=== PATIENT | female | born 1930 | race Caucasian/White ===

== ENCOUNTER 2017-08-14 08:05 | Inpatient (IN) ==
[2017-08-14 08:49] LABS: Basophils % 0.3 % (0.0-0.8); Eosinophils # 0.1 10*3/uL (0.0-0.87); Eosinophils % 0.9 % (0.00-10.9); Hematocrit 34.3 VOL% (35.7-47.0); Hemoglobin 11.9 GM/DL (12.0-16.0); Immature Granulocytes % 0.5 %; Immature Granulocytes Absolute 0.08 #; Lymphocytes # 1.2 10*3/uL (1.4-4.0); Lymphocytes % 7.7 % (21.3-54.2); Mean Corpuscular HGB Conc 34.7 GM/DL (32-36); Mean Corpuscular Hemoglobin 31 PG (27-34); Mean Corpuscular Volume 89.1 FL (87-102); Mean Platelet Volume 10.8 FL (9.6-12.0); Monocytes # 1.6 10*3/uL (0.11-0.8); Monocytes % 10.5 % (1.7-12.7); Neutrophils # 12.3 10*3/uL (1.4-7.4); Neutrophils % 80.1 % (38.7-73.9); Platelet Count 239 T/CUMM (130-400); Red Blood Count 3.85 MC/CUMM (3.8-5.5); Red Cell Distribution Width 14.1 % (9.3-17.3); White Blood Count 15.4 T/CUMM (4-12)
[2017-08-14] MEDS: SODIUM CHLORIDE 0.9% 1,000 ML IV SCH ×2 (08:58→21:11)
[2017-08-14 08:59] LABS: PT Patient Result 10.7 SECS; Partial Thromboplastin Time 24.3 SECS (0-40)
[2017-08-14 09:19] LABS: Bilirubin,Total 1.4 MG/DL (0.2-1.0); Calcium 8.9 MG/DL (8.5-10.1); Osmolality,Calculated 274.2 MOS/KG (273-304); Potassium 3.9 MMOL/L (3.5-5.1); Total Protein 6.7 G/DL (6.4-8.3)
[2017-08-14] MEDS ORDERED: BISACODYL 5 MG TABLET PO PRN (09:45)
[2017-08-14] MEDS ORDERED: ONDANSETRON 4 MG/2 ML VIAL IV PRN (09:45)
[2017-08-14] MEDS ORDERED: ACETAMINOPHEN 325 MG TABLET PO PRN (09:45)
[2017-08-14] MEDS ORDERED: ALUMINUM/MAGNES/SIMETH MAX STR 30 ML UDCUP PO PRN (09:45)
[2017-08-14] MEDS ORDERED: MAGNESIUM CITRATE 300 ML BOTTLE PO ONE (09:57)
[2017-08-14] MEDS ORDERED: POLYETHYLENE GLYCOL POWDER 17 GM PACK PO PRN (09:58)
[2017-08-14] MEDS ORDERED: MAGNESIUM CITRATE 300 ML BOTTLE ONE (10:29)
[2017-08-14] MEDS: DIGOXIN 0.125 MG TABLET PO SCH (21:05)
[2017-08-14] MEDS: DOCUSATE SODIUM 100 MG CAPSULE PO SCH (21:05)
[2017-08-14] MEDS: MULTIVITAMIN (CENTRUM) TABLET PO SCH (21:06)
[2017-08-14] MEDS: METOPROLOL SUCCINATE XL 50 MG TABLET PO SCH (21:06)
[2017-08-14] MEDS: MINERAL OIL 30 ML UDCUP PO SCH (21:07)
[2017-08-14] MEDS: ROSUVASTATIN 10 MG TABLET PO SCH (21:11)
[2017-08-15 05:18] LABS: Basophils % 0.3 % (0.0-0.8); Eosinophils # 0.2 10*3/uL (0.0-0.87); Eosinophils % 1.6 % (0.00-10.9); Hematocrit 30.3 VOL% (35.7-47.0); Hemoglobin 10.2 GM/DL (12.0-16.0); Immature Granulocytes % 0.6 %; Immature Granulocytes Absolute 0.07 #; Lymphocytes # 1.4 10*3/uL (1.4-4.0); Lymphocytes % 11.7 % (21.3-54.2); Mean Corpuscular HGB Conc 33.7 GM/DL (32-36); Mean Corpuscular Hemoglobin 30 PG (27-34); Mean Corpuscular Volume 89.9 FL (87-102); Mean Platelet Volume 10.8 FL (9.6-12.0); Monocytes # 1.3 10*3/uL (0.11-0.8); Monocytes % 11.4 % (1.7-12.7); Neutrophils # 8.8 10*3/uL (1.4-7.4); Neutrophils % 74.4 % (38.7-73.9); Platelet Count 186 T/CUMM (130-400); Red Blood Count 3.37 MC/CUMM (3.8-5.5); Red Cell Distribution Width 14.3 % (9.3-17.3); White Blood Count 11.8 T/CUMM (4-12)
[2017-08-15 05:37] LABS: Osmolality,Calculated 280.5 MOS/KG (273-304); Potassium 4.3 MMOL/L (3.5-5.1)
[2017-08-15] MEDS: SODIUM CHLORIDE 0.9% 1,000 ML IV SCH ×2 (05:53→16:24)
[2017-08-15] MEDS: LEVOTHYROXINE 100 MCG TABLET PO SCH (06:20)
[2017-08-15] MEDS: PANTOPRAZOLE 40 MG TABLET PO SCH (11:22)
[2017-08-15] MEDS: MINERAL OIL 30 ML UDCUP PO SCH ×2 (11:24→20:56)
[2017-08-15] MEDS: DOCUSATE SODIUM 100 MG CAPSULE PO SCH ×2 (11:25→20:56)
[2017-08-15] MEDS: ROSUVASTATIN 10 MG TABLET PO SCH (20:56)
[2017-08-15] MEDS: MULTIVITAMIN (CENTRUM) TABLET PO SCH (20:56)
[2017-08-15] MEDS: DIGOXIN 0.125 MG TABLET PO SCH (20:56)
[2017-08-15] MEDS: METOPROLOL SUCCINATE XL 50 MG TABLET PO SCH (20:56)
[2017-08-16] MEDS: SODIUM CHLORIDE 0.9% 1,000 ML IV SCH (01:27)
[2017-08-16 06:03] LABS: Basophils % 0.4 % (0.0-0.8); Eosinophils # 0.3 10*3/uL (0.0-0.87); Eosinophils % 3.2 % (0.00-10.9); Hematocrit 29.1 VOL% (35.7-47.0); Hemoglobin 9.8 GM/DL (12.0-16.0); Immature Granulocytes % 0.5 %; Immature Granulocytes Absolute 0.04 #; Lymphocytes # 1.3 10*3/uL (1.4-4.0); Lymphocytes % 14.8 % (21.3-54.2); Mean Corpuscular HGB Conc 33.7 GM/DL (32-36); Mean Corpuscular Hemoglobin 31 PG (27-34); Mean Corpuscular Volume 90.9 FL (87-102); Mean Platelet Volume 11.1 FL (9.6-12.0); Monocytes # 0.8 10*3/uL (0.11-0.8); Monocytes % 9.5 % (1.7-12.7); Neutrophils # 6.1 10*3/uL (1.4-7.4); Neutrophils % 71.6 % (38.7-73.9); Platelet Count 195 T/CUMM (130-400); Red Cell Distribution Width 14.4 % (9.3-17.3); White Blood Count 8.5 T/CUMM (4-12)
[2017-08-16] MEDS: LEVOTHYROXINE 100 MCG TABLET PO SCH (06:15)
[2017-08-16 06:33] LABS: Osmolality,Calculated 286.1 MOS/KG (273-304); Potassium 3.8 MMOL/L (3.5-5.1)
[2017-08-16 06:35] LABS: Risk Ratio 2.19
[2017-08-16 07:36] VITALS: BP 160/75
[2017-08-16] MEDS: DOCUSATE SODIUM 100 MG CAPSULE PO SCH (09:45)
[2017-08-16] MEDS: PANTOPRAZOLE 40 MG TABLET PO SCH (09:45)
[2017-08-16] MEDS: MINERAL OIL 30 ML UDCUP PO SCH (09:45)
== END 2017-08-16 13:45 | disposition home health service (06) | DRG 312 ==
LOC: EDUNIT# → EDBD → N.ED 08:05 → N.EDINP 11:04 → N.3E 11:36
PROVIDERS: ADMIT Specialist; ATTEND Specialist